=== PATIENT | female | born 1990 | race Caucasian/White ===

== ENCOUNTER 2022-02-02 14:42 | Emergency (ER) | payer MEDICAID ==
[~2022-02-02] VITALS: Ht 167.6 cm; Wt 94.3 kg
[2022-02-02 15:03] VITALS: BP_SYST 123
[2022-02-02 16:59] LABS: BASOPHILS % (AUTO) 0.4 % (0.0-2.0); EOSINOPHILS # (AUTO) 0.1 K/uL (0.0-0.4); EOSINOPHILS % (AUTO) 1.4 % (0.0-4.0); HEMATOCRIT 37.2 % (36-48); LYMPHOCYTES # (AUTO) 1.8 K/uL (1.0-5.5); LYMPHOCYTES % (AUTO) 24.6 % (20.5-51.5); MEAN CORPUSCULAR VOLUME 87 fL (79.0-98.0); MONOCYTES # (AUTO) 0.5 K/uL (0.0-1.0); MONOCYTES % (AUTO) 6.8 % (1.7-9.3); NEUTROPHILS # (AUTO) 4.9 K/uL (1.8-7.7); NEUTROPHILS % (AUTO) 66.8 % (40.0-70.0); PLATELET COUNT (AUTO) 205 K/uL (130-430); RED BLOOD CELL COUNT(AUTO) 4.29 MIL/uL (4.2-6.2); RED CELL DISTRIBUTION WIDTH 13.4 % (9.0-15.0); WHITE BLOOD COUNT (AUTO) 7.3 K/uL (4.8-10.8)
[2022-02-02 17:12] LABS: CREATININE 0.8 mg/dL (0.55-1.30); POTASSIUM 3.8 mmol/L (3.5-5.1)
[2022-02-02 17:39] LABS: ALBUMIN 3.7 g/dL (3.4-4.8); TOTAL BILIRUBIN 0.4 mg/dL (0.0-1.0)
[2022-02-02 18:36] VITALS: BP_SYST 106
== END 2022-02-02 18:55 | disposition home or self-care (01) ==
LOC: SED 14:42
DX: O20.9 Hemorrhage in early pregnancy, unspecified (principal); R10.2 Pelvic and perineal pain; Z3A.01 Less than 8 weeks gestation of pregnancy
CPT/HCPCS: 36415; 76805-TC; 80053; 81002; 84702; 85025; 86900; 86901; 99283; 99284

== ENCOUNTER 2022-09-14 19:12 | Emergency (ER) | payer BC, MEDICAID ==
[~2022-09-14] VITALS: Ht 167.6 cm; Wt 98.0 kg
[2022-09-14 19:16] VITALS: BP_SYST 150
[2022-09-14] MEDS ORDERED: 0.45% NACL 1,000 ML IV SCH (19:45)
[2022-09-14] MEDS ORDERED: LIDOCAINE PATCH 5% 1 EA TP ONE (20:00)
[2022-09-14] MEDS ORDERED: TAMSULOSIN HCL 0.4 MG CAP PO SCH (21:00)
[2022-09-14] MEDS ORDERED: LIDO15CR11 TP (21:10)
[2022-09-14 21:17] VITALS: BP_SYST 127
== END 2022-09-14 21:17 | disposition home or self-care (01) ==
LOC: SED 19:12
DX: R07.89 Other chest pain (principal); M25.512 Pain in left shoulder; M54.6 Pain in thoracic spine; I10 Essential (primary) hypertension; Z79.899 Other long term (current) drug therapy
CPT/HCPCS: 93005; 99283

== ENCOUNTER 2022-09-16 20:29 | Observation (INO) | payer BC, MEDICAID ==
[~2022-09-16 20:29] MED LIST: LIDO15CR11 TP
== END 2022-09-16 22:21 | disposition home or self-care (01) ==
LOC: SPU 20:29
PROVIDERS: ADMIT Obstetrics & Gynecology; ATTEND Obstetrics & Gynecology
DX: O26.893 Other specified pregnancy related conditions, third trimester (principal); R10.9 Unspecified abdominal pain; O99.891 Other specified diseases and conditions complicating pregnancy; M54.50 Low back pain, unspecified; Z3A.37 37 weeks gestation of pregnancy
CPT/HCPCS: G0379; G0378